=== PATIENT | female | born 1960 | race American Indian/Alaskan Native ===

== ENCOUNTER 2017-12-08 12:47 | Emergency (ER) | payer BC ==
[2017-12-08 12:59] VITALS: BP 136/80
[2017-12-08 13:40] LABS: Bilirubin,Urine NEG (Negative); Blood,Urine NEG (Negative); Color,Urine Yellow (Yellow); Protein,Urine <15 mg/dL mg/dL (Negative); WBC,Urine < 1.0 /HPF (0.0-6.0)
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
[2017-12-08] MEDS ORDERED: TORADOL IM ONE (13:56)
== END 2017-12-08 14:08 | disposition home or self-care (01) ==
LOC: ED 12:47
DX: S39.012A Strain of muscle, fascia and tendon of lower back, initial encounter (principal); I10 Essential (primary) hypertension; E11.9 Type 2 diabetes mellitus without complications; E78.00 Pure hypercholesterolemia, unspecified; X58.XXXA Exposure to other specified factors, initial encounter; Y93.89 Activity, other specified; Y92.89 Other specified places as the place of occurrence of the external cause; Y99.8 Other external cause status
CPT/HCPCS: 81001; 96372; 99283; J1885

== ENCOUNTER 2018-02-05 14:34 | Emergency (ER) | payer BC ==
[2018-02-05 14:42] VITALS: BP 140/91
--- NOTE | 2018-02-05 17:10 | Emergency Department Report ---
Blank Doc - Documentation Documentation: Patient is a 57-year-old female who for the past 3 days has had a cough cold congestion that is productive of greenish yellow sputum as well as mild shortness of breath and sore throat. Patient states she has a history of atypical pneumonia. Chest x-ray will be ordered. Patient's lungs sound relatively normal on brief physical exam. Patient be reassessed by a ROBBIN after chest x-ray.
--- NOTE | 2018-02-05 17:53 | XRay Report ---
FINAL REPORT EXAM: XR CHEST ROUTINE 2V HISTORY: productive cough TECHNIQUE: Two views of the chest Comparison: None FINDINGS: Heart size is normal. There are patchy bibasal infiltrates. There is mild motion degradation on the lateral projection. Costophrenic angles are somewhat obscured by motion. No definite effusion. IMPRESSION: Patchy bibasal infiltrates, left greater than right.
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
[2018-02-05] MEDS ORDERED: LEVAQUIN PO ONE (17:57)
== END 2018-02-05 19:15 | disposition home or self-care (01) ==
LOC: ED 14:34
DX: J18.9 Pneumonia, unspecified organism (principal); J06.9 Acute upper respiratory infection, unspecified; M54.6 Pain in thoracic spine; R51 Headache; I10 Essential (primary) hypertension; E78.00 Pure hypercholesterolemia, unspecified; Z90.710 Acquired absence of both cervix and uterus
CPT/HCPCS: 71046